=== PATIENT | female | born 1995 | race Caucasian/White ===

== ENCOUNTER 2022-01-28 04:48 | Inpatient (IN) | payer OTHER ==
[~2022-01-28] VITALS: Ht 167.6 cm; Wt 92.7 kg
[~2022-01-28 04:48] MED LIST: METO10 PO; PROM12.5S PR
[2022-01-28 09:49] LABS: BASOPHILS ABSOLUTE AUTO 0.04 K/mm3 (0.00-0.23); BASOPHILS PERCENT AUTO 0 % (0-2); EOSINOPHILS ABSOLUTE AUTO 0.01 K/mm3 (0.00-0.68); EOSINOPHILS PERCENT AUTO 0 % (0-6); Hematocrit 38.6 % (33.0-51.0); Hemoglobin 13.5 g/dL (11.5-16.0); IMMATURE GRAN ABSOLUTE AUTO 0.04 K/mm3 (0.00-0.10); IMMATURE GRAN PERCENT AUTO 0 % (0-1); LYMPHOCYTES ABSOLUTE AUTO 1.28 K/mm3 (0.84-5.20); LYMPHOCYTES PERCENT AUTO 13 % (21-46); MONOCYTES ABSOLUTE AUTO 0.64 K/mm3 (0.16-1.47); MONOCYTES PERCENT AUTO 7 % (4-13); Mean Corpuscular HGB 29.2 pg (26.0-34.0); Mean Corpuscular Volume 84 fL (80-100); Mean Platelet Volume 10.9 fL (9.1-12.4); NEUTROPHILS ABSOLUTE AUTO 7.64 K/mm3 (1.96-9.15); NEUTROPHILS PERCENT AUTO 79 % (41-73); Platelet Count 220 K/mm3 (150-400); RDW Coefficient Variation 12.9 % (11.7-14.2); RDW Standard Deviation 39.2 fL (35.1-46.3); Red Blood Cell Count 4.62 M/mm3 (3.80-5.20); White Blood Cell Count 9.65 K/mm3 (4.00-11.30)
[2022-01-28 10:27] LABS: Albumin, Blood 3.7 g/dL (3.4-5.0); Albumin/Globulin Ratio 1.1 (0.8-1.8); Bilirubin, Total 2.1 mg/dL (0.1-1.0); Bun/Creatinine Ratio 25.3 (12.0-20.0); Calcium, Blood 8.7 mg/dL (8.5-10.1); Creatinine, Blood 0.55 mg/dL (0.40-1.00); Globulin, Blood 3.5 g/dL (2.2-4.0); Potassium, Blood 2.9 mmol/L (3.5-5.5); Total Protein, Blood 7.2 g/dL (6.4-8.2)
[2022-01-28 14:17] LABS: Bun/Creatinine Ratio 19.2 (12.0-20.0); Calcium, Blood 8.3 mg/dL (8.5-10.1); Creatinine, Blood 0.52 mg/dL (0.40-1.00); Magnesium, Blood 1.9 mg/dL (1.6-2.4); Potassium, Blood 3.6 mmol/L (3.5-5.5)
[2022-01-28] MEDS ORDERED: B-6200 MG PO (18:37)
[2022-01-28 22:21] LABS: Source, Urine Clean Catch
[2022-01-28 22:22] LABS: Bilirubin, Urine Neg (Neg); Blood, Urine Neg (Neg); Glucose Qualitative, Urine Neg (Neg); Ketones, Urine 4+ (Neg); Leukocyte Esterase, Urine Neg (Neg); Nitrite, Urine Neg (Neg); Protein, Urine Neg (Neg); Specific Gravity, Urine 1.015 (1.003-1.022); Urobilinogen, Urine 3+ (Normal)
[2022-01-28 23:08] LABS: Appearance, Urine Clear (Clear); Color, Urine Yellow (P-Yellow)
--- NOTE | 2022-01-29 04:30 | NUR ---
SUMMARY: PT A/OX4, INDEPENDENT IN ROOM AND CALLS APPROPRIATELY TO SPECIFY NEEDS. SHE REMAINS VERY NAUSEOUS W/EMESIS AND DRY HEAVING OBSERVED. BENEDRYL IV PRN RX'D IN ADDITION TO EXISTING REGLAN AND ZOFRAN TO HELP RELIEVE NAUSEA. THESE PRN MEDS WERE RECIEVED REGULARLY T/O NOCTE FOR "SOME IMPROVEMENT". SHE CONT'S TO HAVE DIFFICULTY KEEPING ANYTHING DOWN BUT TOLERATED SIPS OF WATER. LR INFUSED X1L THEN WAS SL'D PER EMAR. UA OBTAINED AND SENT, NO UTI EVIDENT. VSS/AFEBRILE AND NO ACUTE CHANGES. WCTM AND REPORT TO DAY RN.
[2022-01-29 05:22] LABS: Magnesium, Blood 1.9 mg/dL (1.6-2.4)
[2022-01-29 05:23] LABS: Bun/Creatinine Ratio 13.9 (12.0-20.0); Calcium, Blood 8.3 mg/dL (8.5-10.1); Creatinine, Blood 0.51 mg/dL (0.40-1.00); Potassium, Blood 3.1 mmol/L (3.5-5.5)
--- NOTE | 2022-01-29 06:35 | NUR ---
ALERTED TO POTASSIUM NOW 3.1, WAS 3.6. NEW ORDERS RECIEVED FOR KCL 40 MEQ IV X1.
--- NOTE | 2022-01-30 04:40 | NUR ---
SUMMARY: PT A/OX4, INDEPENDENT IN ROOM AND CALLS APPROPRIATLEY TO SPECIFY NEEDS. SHE CONT'S TO LACK AN APPETITE AND NAUSEA PERSISTS BUT PT REPORTS SOME IMPROVEMENT. PRN REGLAN, ZOFRAN AND BENEDRYL RECIEVED PER EMAR AND LR INFUSES AT 100 ML/HR. NO ACUTE CHANGES, VSS/AFEBRILE. WCTM AND REPORT TO DAY RN.
[2022-01-30 05:34] LABS: Bun/Creatinine Ratio 15.2 (12.0-20.0); Calcium, Blood 8.5 mg/dL (8.5-10.1); Creatinine, Blood 0.46 mg/dL (0.40-1.00); Potassium, Blood 3.3 mmol/L (3.5-5.5)
--- NOTE | 2022-01-31 04:39 | NUR ---
SUMMARY: PT A/OX4, CALLS APPROPRIATELY TO SPECIFY NEEDS AND IS PLEASANT AND COOPERATIVE W/CARE. NAUSEA APPEARS TO BE MUCH IMPROVED THIS SHIFT. SHE RECIEVED SCHEDULED PEPCID AND SOLUMEDROL AT HS BUT HASN'T REQUESTED ANY PRN ANTIEMETICS THIS SHIFT. PT TOLERATING SMALL AMTS OF PO AT A TIME. SHE DENIED NEEDS AND STATED FEELING "JUST REALLY TIRED". PT OBSERVED SLEEPING MAJORITY OF NOCTE W/O ACUTE CHANGES. VSS/AFEBRILE. WCTM AND REPORT TO DAY RN.
[2022-01-31 06:39] LABS: Bun/Creatinine Ratio 18.7 (12.0-20.0); Calcium, Blood 9.2 mg/dL (8.5-10.1); Creatinine, Blood 0.43 mg/dL (0.40-1.00); Potassium, Blood 3.8 mmol/L (3.5-5.5)
--- NOTE | 2022-01-31 18:03 | NUR ---
PATIENT A/OX4, UP INDEPENDENTLY IN ROOM. CONTINUES TO HAVE N/V TODAY AFTER EATING. PATIENT ALSO HAD A FEW EPISODES OFF DIARRHEA. VSS, ON RA. TRYING A MORE BLAND DIET THIS EVENING FOR DINNER. 20G IV TO R HAND WNL. ZOFRAN CHANGED FROM PRN TO SCHEDULED TODAY. PATIENT IS VERY PLEASANT AND COOPERATIVE WITH CARE AND CALLS APPROPRIATELY FOR ASSISTANCE.
--- NOTE | 2022-02-01 05:03 | NUR ---
PT IS A/O IND IN ROOM. MEDICATED FOR NAUSEA THIS SHIFT, PT IS 6 WKS . VOMIT X1 THIS SHIFT. AT BEDSIDE.
--- NOTE | 2022-02-01 17:24 | NUR ---
SHIFT SUMMARY PT A&O X 4. HAS BEEN NAUSEATED OFF & ON THROUGHOUT SHIFT. VOMITED 2 TIMES. HAS BEEN ABLE TO KEEP DOWN WATERMELON. VSS. PT DENIED NEED FOR ZOFRAN THIS AM. SHE REQUESTED ZOFRAN DOSE THIS AFTERNOON, GIVEN. SHE WAS MEDICATED ONCE WITH REGLAN. PLAN IS POSSIBLE HOME TOMORROW.
--- NOTE | 2022-02-02 05:30 | NUR ---
PT IS A/O, 6 WKS , IND IN ROOM, ONE TIME OF VOMITTING THIS SHIFT. SCHEDULED ZOFRAN GIVEN WITH REGLAN IN BETWEEN. PT IS SORE FROM VOMITTING BUT REFUSED TYLENOL THIS SHIFT.
[2022-02-02] MEDS ORDERED: ONDA4ODT MM (17:17)
--- NOTE | 2022-02-02 18:41 | NUR ---
DC HOME PT DC'D HOME WITH ALL PERSONAL BELONGINGS WITH SO. PIV DC'D WITH CATH TIP INTACT. SWELLING NOTED AT PIV SITE. DC INSTRUCTIONS GIVEN TO PT. ALL CONCERNS & QUESTIONS ADDRESSED. DC MEDS FAXED TO [facility] IN [place] PER PT REQUEST.
== END 2022-02-02 18:39 | disposition home or self-care (01) | DRG 833 ==
LOC: ER 04:48 → MEDS 04:49
PROVIDERS: Family Medicine; Student in an Organized Health Care Education/Training Program; ADMIT Hospitalist
DX: O21.0 Mild hyperemesis gravidarum (principal); O99.281 Endocrine, nutritional and metabolic diseases complicating pregnancy, first trimester; E87.6 Hypokalemia; Z3A.01 Less than 8 weeks gestation of pregnancy; Z90.49 Acquired absence of other specified parts of digestive tract; Z79.899 Other long term (current) drug therapy
CPT/HCPCS: 36415; 80048; 80053; 81003; 83735; 84100; 84702; 85025; 96361; 96365; 96366; 96367; 96375; 96376; 99284-25; A9270; G0378; J1200; J2405; J2550; J2765; J2920; J3411; J3415; J3480; J7030; J7042; J7120

== ENCOUNTER 2022-02-23 10:56 | Inpatient (IN) | payer OTHER ==
[~2022-02-23] VITALS: Ht 167.6 cm; Wt 81.2 kg
[~2022-02-23 10:56] MED LIST changes: +B-6200 MG PO; +ONDA4ODT MM
[2022-02-23 11:38] LABS: BASOPHILS ABSOLUTE AUTO 0.06 K/mm3 (0.00-0.23); BASOPHILS PERCENT AUTO 1 % (0-2); EOSINOPHILS ABSOLUTE AUTO 0.08 K/mm3 (0.00-0.68); EOSINOPHILS PERCENT AUTO 1 % (0-6); Hematocrit 44.1 % (33.0-51.0); Hemoglobin 16.4 g/dL (11.5-16.0); IMMATURE GRAN ABSOLUTE AUTO 0.02 K/mm3 (0.00-0.10); IMMATURE GRAN PERCENT AUTO 0 % (0-1); LYMPHOCYTES ABSOLUTE AUTO 1.31 K/mm3 (0.84-5.20); LYMPHOCYTES PERCENT AUTO 15 % (21-46); MONOCYTES ABSOLUTE AUTO 0.66 K/mm3 (0.16-1.47); MONOCYTES PERCENT AUTO 8 % (4-13); Mean Corpuscular HGB 29.4 pg (26.0-34.0); Mean Corpuscular HGB Conc 37.2 g/dL (31.5-36.5); Mean Corpuscular Volume 79 fL (80-100); Mean Platelet Volume 11.1 fL (9.1-12.4); NEUTROPHILS ABSOLUTE AUTO 6.36 K/mm3 (1.96-9.15); NEUTROPHILS PERCENT AUTO 75 % (41-73); Platelet Count 285 K/mm3 (150-400); RDW Coefficient Variation 13.2 % (11.7-14.2); RDW Standard Deviation 36.5 fL (35.1-46.3); Red Blood Cell Count 5.58 M/mm3 (3.80-5.20); White Blood Cell Count 8.49 K/mm3 (4.00-11.30)
[2022-02-23 11:38] LABS: Source, Urine Clean Catch
[2022-02-23 11:45] LABS: Appearance, Urine Hazy (Clear); Blood, Urine 1+ (Neg); Color, Urine Amber (P-Yellow); Glucose Qualitative, Urine Neg (Neg); Ketones, Urine 4+ (Neg); Leukocyte Esterase, Urine 1+ (Neg); Nitrite, Urine Neg (Neg); Protein, Urine 2+ (Neg); Urobilinogen, Urine 3+ (Normal)
[2022-02-23 12:02] LABS: Albumin, Blood 3.8 g/dL (3.4-5.0); Albumin/Globulin Ratio 0.9 (0.8-1.8); Bilirubin, Total 2.7 mg/dL (0.1-1.0); Bun/Creatinine Ratio 18.1 (12.0-20.0); Calcium, Blood 9.9 mg/dL (8.5-10.1); Creatinine, Blood 0.33 mg/dL (0.40-1.00); Globulin, Blood 4.3 g/dL (2.2-4.0); Potassium, Blood 2.9 mmol/L (3.5-5.5); Total Protein, Blood 8.1 g/dL (6.4-8.2)
[2022-02-23 12:10] LABS: Bilirubin, Urine 1+ (Neg)
[2022-02-23 12:11] LABS: Hyaline Casts 0-2 /lpf (0-2)
[2022-02-23 12:12] LABS: Bacteria Many /hpf; Red Blood Cells, Urine 0-2 /hpf (0-2); Squamous Epithelial Cells Many /hpf (Few)
--- NOTE | 2022-02-23 22:06 | NUR ---
PT ADMITTED FROM ER TO ROOM 301 AT 1950. PT ABLE TO AMBULATE, SBA. PT DENIED ANY N/V OR PAIN. REPORTED RECEIVED FROM CONTROL ENGINEERGE. WILL CONTINUE TO MONITOR.
--- NOTE | 2022-02-24 04:00 | NUR ---
A&OX4. V/S WNL. NO N/V. PT C/O ACID REFLUX. PT STARTED ON IV PROTONIX. NPO. IV TO L) AC; NS INFUSING @ 100 ML/HR FOR A TOTAL OF 1.5L. VOIDED W/O DIFFICULTY. NO BM. TELE: SR @ HR OF 69 BPM. INDEPENDANT. WILL CONTINUE TO MONITOR.
[2022-02-24 05:40] LABS: BASOPHILS ABSOLUTE AUTO 0.06 K/mm3 (0.00-0.23); BASOPHILS PERCENT AUTO 1 % (0-2); EOSINOPHILS ABSOLUTE AUTO 0.11 K/mm3 (0.00-0.68); EOSINOPHILS PERCENT AUTO 2 % (0-6); Hematocrit 36.4 % (33.0-51.0); Hemoglobin 12.9 g/dL (11.5-16.0); IMMATURE GRAN ABSOLUTE AUTO 0.02 K/mm3 (0.00-0.10); IMMATURE GRAN PERCENT AUTO 0 % (0-1); LYMPHOCYTES ABSOLUTE AUTO 1.68 K/mm3 (0.84-5.20); LYMPHOCYTES PERCENT AUTO 27 % (21-46); MONOCYTES ABSOLUTE AUTO 0.51 K/mm3 (0.16-1.47); MONOCYTES PERCENT AUTO 8 % (4-13); Mean Corpuscular HGB 29.2 pg (26.0-34.0); Mean Corpuscular HGB Conc 35.4 g/dL (31.5-36.5); Mean Corpuscular Volume 82 fL (80-100); Mean Platelet Volume 11.2 fL (9.1-12.4); NEUTROPHILS ABSOLUTE AUTO 3.96 K/mm3 (1.96-9.15); NEUTROPHILS PERCENT AUTO 63 % (41-73); Platelet Count 206 K/mm3 (150-400); RDW Coefficient Variation 13.8 % (11.7-14.2); RDW Standard Deviation 40.4 fL (35.1-46.3); Red Blood Cell Count 4.42 M/mm3 (3.80-5.20); White Blood Cell Count 6.34 K/mm3 (4.00-11.30)
[2022-02-24 06:09] LABS: Albumin, Blood 2.8 g/dL (3.4-5.0); Albumin/Globulin Ratio 0.8 (0.8-1.8); Bilirubin, Total 1.9 mg/dL (0.1-1.0); Bun/Creatinine Ratio 14.1 (12.0-20.0); Calcium, Blood 8.4 mg/dL (8.5-10.1); Creatinine, Blood 0.36 mg/dL (0.40-1.00); Globulin, Blood 3.6 g/dL (2.2-4.0); Potassium, Blood 2.6 mmol/L (3.5-5.5); Total Protein, Blood 6.4 g/dL (6.4-8.2)
--- NOTE | 2022-02-24 09:39 | NUR ---
Pt has had no nausea this am, states she's feeling better, no appetite, got herself up to the bathroom, gait noted to be steady, iv infiltrated and is tender, this was removed intact, Dr. Hernandez in to see her, will try some clears and oral k+ rather than the iv so will leave iv out for now, if she tolerates, and K+ is wnl this afternoon may go home later. is tolerating the liquids and crackers.
--- NOTE | 2022-02-24 18:16 | NUR ---
pt had a soft dinner tonight, didn't tolerate very well, sitting up on the side of the bed, states she's not going to vomit just a little discomfort. no acute changes this shift. call light in reach.
--- NOTE | 2022-02-25 04:30 | NUR ---
SHIFT SUMMARY: A/OX4, ADLIB IN ROOM AND INDEPENDENT REPOSITIONING IN BED. NO REPORTS OF NAUSEA THROUGHOUT THE NIGHT. PATIENT HAVING SLIGHT INCREASED APPETITE TOLERATING SOFT/CLEARS WELL AT THIS TIME. NO REPORTS OF PAIN OR ANY DISCOMFORT THROUGHOUT THE NIGHT. BED IN LOW POSITION, CALL HURD AND BELONGINGS IN REACH. PT CONTINUES TO CALL APPROPRIATELY.
--- NOTE | 2022-02-25 08:00 | NUR ---
Pt laying in bed, she looks brighter than yesterday, she reports she had no nausea all night, and feels like she can eat, states she feels back to normal, encouraged her to take it slow with breakfast, call light in reach.
[2022-02-25] MEDS ORDERED: Calcium Carbon500 MG PO (16:25)
[2022-02-25] MEDS ORDERED: K-Dur20 MEQ PO (16:25)
--- NOTE | 2022-02-25 16:55 | NUR ---
K+ is wnl, will be discharging to home, iv removed intact, went over discharge intructions with her, she verbalized understanding, new medication was faxed to [facility] pharmacy, waiting on s.o. call light in reach.
--- NOTE | 2022-02-25 17:00 | NUR ---
pt left via wheelchair with results engineer in attendence, has all her belongings.
== END 2022-02-25 17:19 | disposition home or self-care (01) | DRG 833 ==
LOC: ER 10:56 → MEDS 17:10
PROVIDERS: Physician Assistant; ADMIT Internal Medicine
DX: O21.1 Hyperemesis gravidarum with metabolic disturbance (principal); O99.611 Diseases of the digestive system complicating pregnancy, first trimester; K21.9 Gastro-esophageal reflux disease without esophagitis; Z3A.10 10 weeks gestation of pregnancy; Z90.49 Acquired absence of other specified parts of digestive tract; E86.0 Dehydration
CPT/HCPCS: 36415; 76705; 80053; 81001; 84132; 84702; 85025; 87086; 96361; 96365; 96366; 96372; 96372-59; 96375; 96376; 99285-25; A9270; C9113; G0378; J1650; J2405; J2550; J2765; J3480; J7030; J7040; J7050; J7120

== ENCOUNTER 2022-03-02 01:31 | Emergency (ER) | payer OTHER ==
[~2022-03-02] VITALS: Ht 165.1 cm; Wt 78.9 kg
[~2022-03-02 01:31] MED LIST changes: +Calcium Carbon500 MG PO; +K-Dur20 MEQ PO
[2022-03-02 02:26] LABS: BASOPHILS ABSOLUTE AUTO 0.05 K/mm3 (0.00-0.23); BASOPHILS PERCENT AUTO 1 % (0-2); EOSINOPHILS ABSOLUTE AUTO 0.08 K/mm3 (0.00-0.68); EOSINOPHILS PERCENT AUTO 1 % (0-6); Hematocrit 43.3 % (33.0-51.0); Hemoglobin 15.8 g/dL (11.5-16.0); IMMATURE GRAN ABSOLUTE AUTO 0.02 K/mm3 (0.00-0.10); IMMATURE GRAN PERCENT AUTO 0 % (0-1); LYMPHOCYTES ABSOLUTE AUTO 1.54 K/mm3 (0.84-5.20); LYMPHOCYTES PERCENT AUTO 24 % (21-46); MONOCYTES ABSOLUTE AUTO 0.42 K/mm3 (0.16-1.47); MONOCYTES PERCENT AUTO 7 % (4-13); Mean Corpuscular HGB 29.8 pg (26.0-34.0); Mean Corpuscular HGB Conc 36.5 g/dL (31.5-36.5); Mean Corpuscular Volume 82 fL (80-100); Mean Platelet Volume 11.1 fL (9.1-12.4); NEUTROPHILS ABSOLUTE AUTO 4.27 K/mm3 (1.96-9.15); NEUTROPHILS PERCENT AUTO 67 % (41-73); Platelet Count 270 K/mm3 (150-400); RDW Coefficient Variation 14.3 % (11.7-14.2); RDW Standard Deviation 41.8 fL (35.1-46.3); Red Blood Cell Count 5.31 M/mm3 (3.80-5.20); White Blood Cell Count 6.38 K/mm3 (4.00-11.30)
[2022-03-02 02:44] LABS: Albumin, Blood 3.5 g/dL (3.4-5.0); Albumin/Globulin Ratio 0.9 (0.8-1.8); Bilirubin, Total 1.8 mg/dL (0.1-1.0); Bun/Creatinine Ratio 13.5 (12.0-20.0); Calcium, Blood 9.4 mg/dL (8.5-10.1); Creatinine, Blood 0.37 mg/dL (0.40-1.00); Globulin, Blood 3.7 g/dL (2.2-4.0); Potassium, Blood 3.5 mmol/L (3.5-5.5); Total Protein, Blood 7.2 g/dL (6.4-8.2)
== END 2022-03-02 06:25 | disposition home or self-care (01) ==
LOC: ER 01:31
PROVIDERS: Student in an Organized Health Care Education/Training Program
DX: O21.0 Mild hyperemesis gravidarum (principal); Z3A.12 12 weeks gestation of pregnancy; Z79.899 Other long term (current) drug therapy
CPT/HCPCS: 80053; 85025; J2405; J7120

== ENCOUNTER 2022-03-06 13:42 | Inpatient (IN) | payer OTHER ==
[~2022-03-06] VITALS: Ht 165.1 cm; Wt 78.4 kg
[2022-03-06 14:55] LABS: Source, Urine Clean Catch
[2022-03-06 15:01] LABS: Appearance, Urine Hazy (Clear); Bilirubin, Urine Neg (Neg); Blood, Urine 1+ (Neg); Color, Urine Amber (P-Yellow); Glucose Qualitative, Urine Neg (Neg); Ketones, Urine 4+ (Neg); Leukocyte Esterase, Urine 2+ (Neg); Nitrite, Urine Neg (Neg); Protein, Urine 2+ (Neg); Specific Gravity, Urine 1.025 (1.003-1.022); Urobilinogen, Urine 2+ (Normal)
[2022-03-06 15:13] LABS: Bacteria Mod /hpf; Squamous Epithelial Cells Few /hpf (Few)
[2022-03-06 15:37] LABS: BASOPHILS ABSOLUTE AUTO 0.03 K/mm3 (0.00-0.23); BASOPHILS PERCENT AUTO 0 % (0-2); EOSINOPHILS ABSOLUTE AUTO 0.02 K/mm3 (0.00-0.68); EOSINOPHILS PERCENT AUTO 0 % (0-6); Hematocrit 45.2 % (33.0-51.0); Hemoglobin 16.8 g/dL (11.5-16.0); IMMATURE GRAN ABSOLUTE AUTO 0.03 K/mm3 (0.00-0.10); IMMATURE GRAN PERCENT AUTO 0 % (0-1); LYMPHOCYTES ABSOLUTE AUTO 1.63 K/mm3 (0.84-5.20); LYMPHOCYTES PERCENT AUTO 18 % (21-46); MONOCYTES ABSOLUTE AUTO 0.69 K/mm3 (0.16-1.47); MONOCYTES PERCENT AUTO 8 % (4-13); Mean Corpuscular HGB 29.3 pg (26.0-34.0); Mean Corpuscular HGB Conc 37.2 g/dL (31.5-36.5); Mean Corpuscular Volume 79 fL (80-100); Mean Platelet Volume 10.7 fL (9.1-12.4); NEUTROPHILS ABSOLUTE AUTO 6.73 K/mm3 (1.96-9.15); NEUTROPHILS PERCENT AUTO 74 % (41-73); Platelet Count 352 K/mm3 (150-400); RDW Coefficient Variation 14.4 % (11.7-14.2); Red Blood Cell Count 5.73 M/mm3 (3.80-5.20); White Blood Cell Count 9.13 K/mm3 (4.00-11.30)
[2022-03-06 15:55] LABS: Albumin, Blood 3.8 g/dL (3.4-5.0); Bilirubin, Total 2.5 mg/dL (0.1-1.0); Bun/Creatinine Ratio 12.3 (12.0-20.0); Creatinine, Blood 0.41 mg/dL (0.40-1.00); Potassium, Blood 2.7 mmol/L (3.5-5.5); Total Protein, Blood 7.8 g/dL (6.4-8.2)
--- NOTE | 2022-03-07 05:55 | NUR ---
PT NEW ADMIT THIS SHIFT FOR HYPEREMESIS. PT VSS. PT HAD 1 EPISODE OF WRETCHING W/300ML EMESIS UPON ARRIVAL TO FLOOR. PT MEDICATED W/PHENERGAN PER EMAR, APPEARED TO SLEEP FOR REMAINDER OF SHIFT. PT REP OCC MILD ABD CRAMPING, DENIED VAGINAL BLEEDING. IVF AND K+ INFUSING PER ORDERS. PT UP IN ROOM, DOES REPORT OCC MILD DIZZINESS WHEN FIRST UP, EDCUATED TO CALL FOR ASSISTANCE IF SHE FEELS DIZZY.
[2022-03-07 06:34] LABS: Bun/Creatinine Ratio 10.4 (12.0-20.0); Calcium, Blood 8.8 mg/dL (8.5-10.1); Creatinine, Blood 0.39 mg/dL (0.40-1.00)
--- NOTE | 2022-03-07 17:54 | NUR ---
SUMMARY: PT IS A/O, VSS. NO ACUTE CHANGE TODAY. PT HAS BEEN ABLE TO TOLERATE PO MEDS AND HAS ATE SOME APPLESAUCE AND CRACKERS WITHOUT NAUSEA. PT VOIDING WELL AND INDEPENDENT IN ROOM. NO EMESIS THIS SHIFT. FLUIDS CONTINUE TO INFUSE. PLAN IS FOR CONTINUED MONITORING OVER NIGHT. WILL REPORT TO NOC RN
[2022-03-07 20:06] LABS: Magnesium, Blood 1.7 mg/dL (1.6-2.4); Potassium, Blood 2.6 mmol/L (3.5-5.5)
--- NOTE | 2022-03-08 05:16 | NUR ---
UNDER CUTTER SUMMARY PT HAS HAD A GOOD NIGHT. NO NAUSEA OR VOMITING NOTED TONIGHT. PT WAS ABLE TO EAT A HALF SANDWICH BEFORE BED AND TOLERATED IT WELL WITH NO ISSUES. CONTINUING IV FLUIDS ORDERED. PT HAS SLEPT WELL THROUGH THE NIGHT. VSS, YEN.
[2022-03-08 05:21] LABS: Magnesium, Blood 1.6 mg/dL (1.6-2.4); Potassium, Blood 2.9 mmol/L (3.5-5.5)
--- NOTE | 2022-03-08 07:00 | NUR ---
ASSUMED CARE OF PATIENT. PATIENT RESTING IN BED, DENIES N/V AT THIS TIME. BEDSIDE REPORT DONE WITH MEGAN BARBOSA. PATIENT HAS NO CONCERNS OR QUESTIONS VERBALIZED AT THIS TIME. CALL LIGHT IN REACH. IV PUMP CLEARED AT THIS TIME, 3769 ML. THIS RN DOCUMENTED 1800 FOR NOC SHIFT (150ML FOR 12 HOURS) AND 1969 FOR YESTERDAY DAY SHIFT (THE REMAINDER) IN ORDER TO SHOW ACCURATE I&O'S.
--- NOTE | 2022-03-08 10:53 | NUR ---
Pt. is sitting up in bed, and Pt. welcomes my visit. Pt. is pleasant. facilitate a short life review and Pt. verbalizes that she is , and both she and the baby girl are healthy. Pt. displays evidence of agreement and trust. Prayed with Pt. Pt. verbalizes gratitude for the spiritual care visit.
--- NOTE | 2022-03-08 19:36 | NUR ---
SHIFT SUMMARY NO ACUTE CHANGES THIS SHIFT. PATIENT DENIED N/V THROUGHOUT SHIFT UNTIL ABOUT 1730, REPORTED MILD NAUSEA WITH PM MEAL, MEDICATED X1 PER EMAR. OTHERWISE PATIENT TOLERATED REGULAR DIET T/O SHIFT. UP TO BR INDEPENDENTLY THROUGHOUT SHIFT, HAD SHOWER. DENIES ANY PAIN. CALLS APPROPRIATELY. REPORT GIVEN TO MEGAN LYNN.
--- NOTE | 2022-03-09 04:32 | NUR ---
SHIFT SUMMARY A/O X4- IND IN THE ROOM. PT HAS HAD ONE BOUT OF EMESIS THIS SHIFT, TREATED PER EMAR. VITAL SIGNS STABLE, NO ACUTE CHANGES OVER NIGHT. WILL CONTINUE TO MONITOR AND REPORT TO ONCOMING RN.
[2022-03-09 06:04] LABS: Bun/Creatinine Ratio 10.2 (12.0-20.0); Calcium, Blood 7.8 mg/dL (8.5-10.1); Creatinine, Blood 0.29 mg/dL (0.40-1.00); Potassium, Blood 3.6 mmol/L (3.5-5.5)
--- NOTE | 2022-03-09 11:15 | NUR ---
[facility] RN AT BEDSIDE TO DOPPLER HEART TONES. RN STEPHON UNABLE TO FIND HEART TONES, STATED SHE WILL TELL DR GARNETT WHO WAS DOWNSTAIRS IN [facility] AT THE TIME. REASSURED PATIENT THAT THIS IS NOT UNCOMMON AT THIS STAGE IN .
--- NOTE | 2022-03-09 11:27 | NUR ---
DR GARNETT AT BEDSIDE, PERFORMED ULTRASOUND TO VIEW FETUS AND HEART RATE SUCCESSFULLY. UPDATED PATIENT ON POSSIBLE DISCHARGE TODAY.
[2022-03-09] MEDS ORDERED: PRED20 PO (18:16)
--- NOTE | 2022-03-09 18:41 | NUR ---
DISCHARGE VSS ON RA. PATIENT TOLERATING REGULAR DIET, DENIES N/V AT THIS TIME AND REPORTS FEELING COMFORTABLE GOING HOME ON PO NAUSEA MEDICATIONS. IND IN ROOM. VOIDING WELL. DISCUSSED DISCHARGE INSTRUCTIONS,NO CONCERNS VERBALIZED. ESCORTED OUT VIA W/C.
== END 2022-03-09 18:40 | disposition home or self-care (01) | DRG 833 ==
LOC: ER 13:42 → MEDS 03-07 00:18 → SURS 03-07 00:18
PROVIDERS: Obstetrics & Gynecology; Physician Assistant; ADMIT Advanced Practice Midwife
DX: O21.1 Hyperemesis gravidarum with metabolic disturbance (principal); Z3A.12 12 weeks gestation of pregnancy; Z90.49 Acquired absence of other specified parts of digestive tract; Z79.899 Other long term (current) drug therapy
CPT/HCPCS: 36415; 80048; 80053; 81001; 83690; 83735; 84132; 84702; 85025; 87086; 96365; 96366; 96375; 99284-25; A9270; J1720; J2405; J2550; J3480; J7030; J7120

== ENCOUNTER → 2022-03-12 | Outpatient (CLI) | payer OTHER ==
[~2022-03-12] MED LIST changes: +PRED20 PO
== END | disposition home or self-care (01) ==
LOC: LAB 13:49 → LAB SHORT 13:49
PROVIDERS: Advanced Practice Midwife
DX: Z01.419 Encounter for gynecological examination (general) (routine) without abnormal findings (principal)
CPT/HCPCS: G0123

== ENCOUNTER 2022-03-21 12:18 | Emergency (ER) | payer OTHER ==
[~2022-03-21] VITALS: Ht 165.1 cm; Wt 83.5 kg
[2022-03-21 13:26] LABS: BASOPHILS ABSOLUTE AUTO 0.04 K/mm3 (0.00-0.23); BASOPHILS PERCENT AUTO 1 % (0-2); EOSINOPHILS ABSOLUTE AUTO 0.05 K/mm3 (0.00-0.68); EOSINOPHILS PERCENT AUTO 1 % (0-6); Hematocrit 41.7 % (33.0-51.0); Hemoglobin 14.3 g/dL (11.5-16.0); IMMATURE GRAN ABSOLUTE AUTO 0.03 K/mm3 (0.00-0.10); IMMATURE GRAN PERCENT AUTO 0 % (0-1); LYMPHOCYTES PERCENT AUTO 18 % (21-46); MONOCYTES ABSOLUTE AUTO 0.55 K/mm3 (0.16-1.47); MONOCYTES PERCENT AUTO 7 % (4-13); Mean Corpuscular HGB 29.8 pg (26.0-34.0); Mean Corpuscular HGB Conc 34.3 g/dL (31.5-36.5); Mean Corpuscular Volume 87 fL (80-100); Mean Platelet Volume 10.6 fL (9.1-12.4); NEUTROPHILS ABSOLUTE AUTO 5.95 K/mm3 (1.96-9.15); NEUTROPHILS PERCENT AUTO 74 % (41-73); Platelet Count 306 K/mm3 (150-400); RDW Coefficient Variation 15.6 % (11.7-14.2); RDW Standard Deviation 49.4 fL (35.1-46.3); White Blood Cell Count 8.02 K/mm3 (4.00-11.30)
[2022-03-21 13:32] LABS: Albumin, Blood 3.4 g/dL (3.4-5.0); Albumin/Globulin Ratio 0.8 (0.8-1.8); Bilirubin, Total 2.1 mg/dL (0.1-1.0); Bun/Creatinine Ratio 37.8 (12.0-20.0); Calcium, Blood 9.5 mg/dL (8.5-10.1); Creatinine, Blood 0.19 mg/dL (0.40-1.00); Globulin, Blood 4.3 g/dL (2.2-4.0); Potassium, Blood 3.6 mmol/L (3.5-5.5); Total Protein, Blood 7.7 g/dL (6.4-8.2)
[2022-03-21 14:08] LABS: Source, Urine Clean Catch
[2022-03-21 14:23] LABS: Appearance, Urine Hazy (Clear); Blood, Urine Neg (Neg); Color, Urine Amber (P-Yellow); Glucose Qualitative, Urine Neg (Neg); Ketones, Urine 4+ (Neg); Leukocyte Esterase, Urine 1+ (Neg); Nitrite, Urine Neg (Neg); Protein, Urine 2+ (Neg); Specific Gravity, Urine 1.025 (1.003-1.022); Urobilinogen, Urine 4+ (Normal)
[2022-03-21 14:40] LABS: Bilirubin, Urine 1+ (Neg)
[2022-03-21 14:41] LABS: Mucus Heavy (0-Heavy); Squamous Epithelial Cells Many /hpf (Few)
[2022-03-21 14:42] LABS: Bacteria Mod /hpf
[2022-03-21 14:43] LABS: Amorphous Light (0-Heavy); Transitional Epithelial Cells Rare /hpf (0-Rare)
[2022-03-22] MEDS ORDERED: TRANSDERM-SCOP1 EA12 TD (07:26)
[2022-03-24] MEDS ORDERED: FAMO20 (16:53)
[2022-03-24] MEDS ORDERED: OMEP20ER PO (16:53)
== END 2022-03-21 16:55 | disposition home or self-care (01) ==
LOC: ER 12:18
PROVIDERS: Physician Assistant
DX: O21.0 Mild hyperemesis gravidarum (principal); Z3A.14 14 weeks gestation of pregnancy; Z79.899 Other long term (current) drug therapy; Z79.52 Long term (current) use of systemic steroids
CPT/HCPCS: 36415; 80053; 81001; 85025; 87077; 87086; 87186; 96361; 96374; 99283-25; J1720; J7030

== ENCOUNTER 2022-03-26 00:07 | Day surgery (SDC) | payer OTHER ==
[~2022-03-26 00:07] MED LIST changes: +FAMO20; +OMEP20ER PO; +TRANSDERM-SCOP1 EA12 TD
[2022-03-30] MEDS ORDERED: REGLAN PO (14:29)
== END 2022-03-26 15:22 | disposition home or self-care (01) ==
LOC: ATC 00:07
DX: O21.0 Mild hyperemesis gravidarum (principal); Z3A.00 Weeks of gestation of pregnancy not specified; Z79.899 Other long term (current) drug therapy
CPT/HCPCS: 96361; 96374; J2405; J7120

== ENCOUNTER 2022-04-02 01:36 | Day surgery (SDC) | payer OTHER ==
[~2022-04-02 01:36] MED LIST changes: +REGLAN PO
== END 2022-04-02 15:33 | disposition home or self-care (01) ==
LOC: ATC 01:36
DX: O21.0 Mild hyperemesis gravidarum (principal); Z3A.00 Weeks of gestation of pregnancy not specified
CPT/HCPCS: 96361; 96374; J2405; J7120

== ENCOUNTER 2022-04-10 00:18 | Day surgery (SDC) | payer OTHER | END 2022-04-10 16:18 | disposition home or self-care (01) | LOC: ATC 00:18 | DX: O21.0 Mild hyperemesis gravidarum (principal); Z3A.00 Weeks of gestation of pregnancy not specified | CPT/HCPCS: 96361; 96374; J2405; J7120 ==

== ENCOUNTER 2022-04-17 01:51 | Day surgery (SDC) | payer OTHER | END 2022-04-17 15:32 | disposition home or self-care (01) | LOC: ATC 01:51 | DX: O21.0 Mild hyperemesis gravidarum (principal); Z3A.00 Weeks of gestation of pregnancy not specified | CPT/HCPCS: 96360; J2405; J7120 ==

== ENCOUNTER → 2022-08-20 | Outpatient (CLI) | payer OTHER | END | disposition home or self-care (01) | LOC: LAB SHORT 17:00 → LAB 17:00 | DX: Z34.03 Encounter for supervision of normal first pregnancy, third trimester (principal) | CPT/HCPCS: 87081; 87150 ==

== ENCOUNTER 2022-09-13 20:22 | Inpatient (IN) | payer OTHER ==
[~2022-09-13] VITALS: Ht 167.6 cm; Wt 103.6 kg
[2022-09-13 22:14] LABS: BASOPHILS ABSOLUTE AUTO 0.04 K/mm3 (0.00-0.23); BASOPHILS PERCENT AUTO 1 % (0-2); EOSINOPHILS PERCENT AUTO 1 % (0-6); Hematocrit 34.5 % (33.0-51.0); Hemoglobin 11.8 g/dL (11.5-16.0); IMMATURE GRAN ABSOLUTE AUTO 0.02 K/mm3 (0.00-0.10); IMMATURE GRAN PERCENT AUTO 0 % (0-1); LYMPHOCYTES ABSOLUTE AUTO 1.92 K/mm3 (0.84-5.20); LYMPHOCYTES PERCENT AUTO 26 % (21-46); MONOCYTES PERCENT AUTO 8 % (4-13); Mean Corpuscular HGB 28.5 pg (26.0-34.0); Mean Corpuscular HGB Conc 34.2 g/dL (31.5-36.5); Mean Corpuscular Volume 83 fL (80-100); Mean Platelet Volume 11.3 fL (9.1-12.4); NEUTROPHILS ABSOLUTE AUTO 4.84 K/mm3 (1.96-9.15); NEUTROPHILS PERCENT AUTO 64 % (41-73); Platelet Count 250 K/mm3 (150-400); RDW Coefficient Variation 13.8 % (11.7-14.2); RDW Standard Deviation 42.2 fL (35.1-46.3); Red Blood Cell Count 4.14 M/mm3 (3.80-5.20); White Blood Cell Count 7.52 K/mm3 (4.00-11.30)
[2022-09-13] MEDS ORDERED: PRENATAL TABLE1 EAC2 PO (22:50)
== END 2022-09-15 09:25 | disposition home or self-care (01) | DRG 833 ==
LOC: OBS 20:22 → BC 20:23 → OBS 20:27 → BC 20:29
PROVIDERS: ADMIT Advanced Practice Midwife
DX: O21.0 Mild hyperemesis gravidarum (principal); O99.820 Streptococcus B carrier state complicating pregnancy; Z3A.39 39 weeks gestation of pregnancy; Z90.49 Acquired absence of other specified parts of digestive tract; Z79.899 Other long term (current) drug therapy
CPT/HCPCS: 36415; 85025; 86850; 86900; 86901; A9270; J0290; J7120

== ENCOUNTER → 2024-01-17 | Outpatient (CLI) | payer OTHER ==
[~2024-01-17] MED LIST changes: +ISIBLOOM 28 DA1 EAC1 PO; +ONDA4ODT SL; +PRENATAL TABLE1 EAC2 PO; +Reglan10 MG PO
[2024-01-17 15:36] LABS: BASOPHILS ABSOLUTE AUTO 0.05 K/mm3 (0.00-0.23); BASOPHILS PERCENT AUTO 1 % (0-2); EOSINOPHILS ABSOLUTE AUTO 0.02 K/mm3 (0.00-0.68); EOSINOPHILS PERCENT AUTO 0 % (0-6); Hematocrit 43.2 % (33.0-51.0); Hemoglobin 15.5 g/dL (11.5-16.0); IMMATURE GRAN ABSOLUTE AUTO 0.03 K/mm3 (0.00-0.10); IMMATURE GRAN PERCENT AUTO 0 % (0-1); LYMPHOCYTES ABSOLUTE AUTO 1.55 K/mm3 (0.84-5.20); LYMPHOCYTES PERCENT AUTO 16 % (21-46); MONOCYTES ABSOLUTE AUTO 0.65 K/mm3 (0.16-1.47); MONOCYTES PERCENT AUTO 7 % (4-13); Mean Corpuscular HGB 28.8 pg (26.0-34.0); Mean Corpuscular HGB Conc 35.9 g/dL (31.5-36.5); Mean Corpuscular Volume 80 fL (80-100); NEUTROPHILS ABSOLUTE AUTO 7.69 K/mm3 (1.96-9.15); NEUTROPHILS PERCENT AUTO 77 % (41-73); Platelet Count 274 K/mm3 (150-400); RDW Coefficient Variation 13.2 % (11.7-14.2); RDW Standard Deviation 37.3 fL (35.1-46.3); Red Blood Cell Count 5.39 M/mm3 (3.80-5.20); White Blood Cell Count 9.99 K/mm3 (4.00-11.30)
[2024-01-17 15:47] LABS: Albumin, Blood 3.9 g/dL (3.4-5.0); Bilirubin, Total 1.7 mg/dL (0.1-1.0); Bun/Creatinine Ratio 10.9 (12.0-20.0); Calcium, Blood 9.6 mg/dL (8.5-10.1); Creatinine, Blood 0.64 mg/dL (0.40-1.00); Globulin, Blood 3.9 g/dL (2.2-4.0); Potassium, Blood 3.1 mmol/L (3.5-5.5); Total Protein, Blood 7.8 g/dL (6.4-8.2)
== END | disposition home or self-care (01) ==
LOC: LAB SHORT 15:24 → LAB 15:24
PROVIDERS: Internal Medicine
DX: K29.70 Gastritis, unspecified, without bleeding (principal)
CPT/HCPCS: 80053; 83690; 85025

== ENCOUNTER 2024-01-26 13:47 | Emergency (ER) | payer OTHER ==
[~2024-01-26] VITALS: Ht 165.1 cm; Wt 87.5 kg
[2024-01-26 14:43] LABS: BASOPHILS ABSOLUTE AUTO 0.06 K/mm3 (0.00-0.23); BASOPHILS PERCENT AUTO 1 % (0-2); EOSINOPHILS ABSOLUTE AUTO 0.02 K/mm3 (0.00-0.68); EOSINOPHILS PERCENT AUTO 0 % (0-6); Hematocrit 46.6 % (33.0-51.0); Hemoglobin 16.6 g/dL (11.5-16.0); IMMATURE GRAN ABSOLUTE AUTO 0.01 K/mm3 (0.00-0.10); IMMATURE GRAN PERCENT AUTO 0 % (0-1); LYMPHOCYTES ABSOLUTE AUTO 1.33 K/mm3 (0.84-5.20); LYMPHOCYTES PERCENT AUTO 20 % (21-46); MONOCYTES PERCENT AUTO 6 % (4-13); Mean Corpuscular HGB 28.5 pg (26.0-34.0); Mean Corpuscular HGB Conc 35.6 g/dL (31.5-36.5); Mean Corpuscular Volume 80 fL (80-100); Mean Platelet Volume 10.5 fL (9.1-12.4); NEUTROPHILS ABSOLUTE AUTO 4.93 K/mm3 (1.96-9.15); NEUTROPHILS PERCENT AUTO 73 % (41-73); Platelet Count 313 K/mm3 (150-400); RDW Coefficient Variation 14.1 % (11.7-14.2); RDW Standard Deviation 39.9 fL (35.1-46.3); Red Blood Cell Count 5.83 M/mm3 (3.80-5.20); White Blood Cell Count 6.75 K/mm3 (4.00-11.30)
[2024-01-26 14:59] LABS: Albumin, Blood 4.4 g/dL (3.4-5.0); Albumin/Globulin Ratio 1.2 (0.8-1.8); Bilirubin, Total 2.1 mg/dL (0.1-1.0); Bun/Creatinine Ratio 15.5 (12.0-20.0); Calcium, Blood 9.7 mg/dL (8.5-10.1); Creatinine, Blood 0.58 mg/dL (0.40-1.00); Globulin, Blood 3.8 g/dL (2.2-4.0); Magnesium, Blood 1.9 mg/dL (1.6-2.4); Potassium, Blood 3.3 mmol/L (3.5-5.5); Total Protein, Blood 8.2 g/dL (6.4-8.2)
[2024-01-26] MEDS ORDERED: Lactated Ringer's 1,000 ML IV ONE (15:45)
[2024-01-26] MEDS ORDERED: Potassium Chloride 20 MEQ TabCR PO ONE (15:50)
[2024-01-26] MEDS ORDERED: Ondansetron HCl 2 MG / ML 2ML Vial IV ONE ×2 (15:50→17:35)
[2024-01-26] MEDS ORDERED: OMEP20ER (16:06)
[2024-01-26] MEDS ORDERED: Potassium Chlo20 ME1 PO (16:06)
[2024-01-26] MEDS ORDERED: ONDA4ODT MM ×2 (16:55→17:57)
[2024-01-26 17:37] VITALS: BP 155/107
== END 2024-01-26 17:40 | disposition home or self-care (01) ==
LOC: ER 13:47
PROVIDERS: Physician Assistant
DX: R11.2 Nausea with vomiting, unspecified (principal); F12.90 Cannabis use, unspecified, uncomplicated; K21.9 Gastro-esophageal reflux disease without esophagitis; Z79.899 Other long term (current) drug therapy; Z79.818 Long term (current) use of other agents affecting estrogen receptors and estrogen levels
CPT/HCPCS: 74177; 80053; 83735; 84703; 85025; 96374-59; 96376; 99284-25; A9270; J2405; J7120; Q9967

== ENCOUNTER → 2024-02-03 | Outpatient (CLI) | payer OTHER ==
[~2024-02-03] MED LIST changes: +OMEP20ER; +Potassium Chlo20 ME1 PO
[2024-02-03 18:13] LABS: BASOPHILS ABSOLUTE AUTO 0.08 K/mm3 (0.00-0.23); BASOPHILS PERCENT AUTO 1 % (0-2); EOSINOPHILS ABSOLUTE AUTO 0.08 K/mm3 (0.00-0.68); EOSINOPHILS PERCENT AUTO 1 % (0-6); Hematocrit 48.3 % (33.0-51.0); Hemoglobin 16.8 g/dL (11.5-16.0); IMMATURE GRAN ABSOLUTE AUTO 0.02 K/mm3 (0.00-0.10); IMMATURE GRAN PERCENT AUTO 0 % (0-1); LYMPHOCYTES ABSOLUTE AUTO 2.35 K/mm3 (0.84-5.20); LYMPHOCYTES PERCENT AUTO 29 % (21-46); MONOCYTES ABSOLUTE AUTO 0.68 K/mm3 (0.16-1.47); MONOCYTES PERCENT AUTO 8 % (4-13); Mean Corpuscular HGB 28.3 pg (26.0-34.0); Mean Corpuscular HGB Conc 34.8 g/dL (31.5-36.5); Mean Corpuscular Volume 81 fL (80-100); NEUTROPHILS ABSOLUTE AUTO 5.05 K/mm3 (1.96-9.15); NEUTROPHILS PERCENT AUTO 61 % (41-73); Platelet Count 281 K/mm3 (150-400); RDW Coefficient Variation 14.7 % (11.7-14.2); RDW Standard Deviation 42.3 fL (35.1-46.3); Red Blood Cell Count 5.94 M/mm3 (3.80-5.20); White Blood Cell Count 8.26 K/mm3 (4.00-11.30)
[2024-02-03 18:34] LABS: Albumin, Blood 4.2 g/dL (3.4-5.0); Albumin/Globulin Ratio 1.1 (0.8-1.8); Bilirubin, Total 2.9 mg/dL (0.1-1.0); Bun/Creatinine Ratio 14.4 (12.0-20.0); Calcium, Blood 9.9 mg/dL (8.5-10.1); Creatinine, Blood 0.9 mg/dL (0.40-1.00); Potassium, Blood 2.9 mmol/L (3.5-5.5); Thyroid Stimulating Hormone 2.265 uIU/mL (0.360-4.800); Total Protein, Blood 8.2 g/dL (6.4-8.2)
== END ==
LOC: LAB SHORT 17:30 → LAB 17:30
PROVIDERS: Physician Assistant Medical
DX: R11.2 Nausea with vomiting, unspecified (principal)
CPT/HCPCS: 80053; 83690; 84443; 85025

== ENCOUNTER → 2024-08-17 | Outpatient (CLI) | payer OTHER ==
[2024-08-17 13:23] LABS: BASOPHILS ABSOLUTE AUTO 0.05 K/mm3 (0.00-0.23); BASOPHILS PERCENT AUTO 0 % (0-2); EOSINOPHILS ABSOLUTE AUTO 0.01 K/mm3 (0.00-0.68); EOSINOPHILS PERCENT AUTO 0 % (0-6); Hematocrit 45.6 % (33.0-51.0); Hemoglobin 15.4 g/dL (11.5-16.0); IMMATURE GRAN ABSOLUTE AUTO 0.05 K/mm3 (0.00-0.10); IMMATURE GRAN PERCENT AUTO 0 % (0-1); LYMPHOCYTES ABSOLUTE AUTO 2.01 K/mm3 (0.84-5.20); LYMPHOCYTES PERCENT AUTO 17 % (21-46); MONOCYTES ABSOLUTE AUTO 0.91 K/mm3 (0.16-1.47); MONOCYTES PERCENT AUTO 8 % (4-13); Mean Corpuscular HGB 27.8 pg (26.0-34.0); Mean Corpuscular HGB Conc 33.8 g/dL (31.5-36.5); Mean Corpuscular Volume 83 fL (80-100); Mean Platelet Volume 10.2 fL (9.1-12.4); NEUTROPHILS ABSOLUTE AUTO 9.01 K/mm3 (1.96-9.15); NEUTROPHILS PERCENT AUTO 75 % (41-73); Platelet Count 332 K/mm3 (150-400); RDW Standard Deviation 41.5 fL (35.1-46.3); Red Blood Cell Count 5.53 M/mm3 (3.80-5.20); White Blood Cell Count 12.04 K/mm3 (4.00-11.30)
[2024-08-17 13:35] LABS: Albumin, Blood 4.9 g/dL (3.4-5.0); Albumin/Globulin Ratio 1.2 (0.8-1.8); Bilirubin, Total 1.8 mg/dL (0.1-1.0); Bun/Creatinine Ratio 25.5 (12.0-20.0); Calcium, Blood 9.9 mg/dL (8.5-10.1); Creatinine, Blood 0.94 mg/dL (0.40-1.00); Potassium, Blood 3.4 mmol/L (3.5-5.5); Total Protein, Blood 8.9 g/dL (6.4-8.2)
== END ==
LOC: LAB SHORT 13:19 → LAB 13:19
PROVIDERS: Family Medicine
DX: K52.9 Noninfective gastroenteritis and colitis, unspecified (principal)
CPT/HCPCS: 80053; 85025

== ENCOUNTER → 2024-08-24 | Outpatient (CLI) | payer OTHER ==
[2024-08-24 17:40] LABS: BASOPHILS ABSOLUTE AUTO 0.07 K/mm3 (0.00-0.23); BASOPHILS PERCENT AUTO 1 % (0-2); EOSINOPHILS ABSOLUTE AUTO 0.07 K/mm3 (0.00-0.68); EOSINOPHILS PERCENT AUTO 1 % (0-6); Hematocrit 47.8 % (33.0-51.0); Hemoglobin 16.8 g/dL (11.5-16.0); IMMATURE GRAN ABSOLUTE AUTO 0.05 K/mm3 (0.00-0.10); IMMATURE GRAN PERCENT AUTO 0 % (0-1); LYMPHOCYTES ABSOLUTE AUTO 2.08 K/mm3 (0.84-5.20); LYMPHOCYTES PERCENT AUTO 19 % (21-46); MONOCYTES ABSOLUTE AUTO 0.82 K/mm3 (0.16-1.47); MONOCYTES PERCENT AUTO 7 % (4-13); Mean Corpuscular HGB Conc 35.1 g/dL (31.5-36.5); Mean Corpuscular Volume 80 fL (80-100); Mean Platelet Volume 10.9 fL (9.1-12.4); NEUTROPHILS ABSOLUTE AUTO 8.04 K/mm3 (1.96-9.15); NEUTROPHILS PERCENT AUTO 72 % (41-73); Platelet Count 288 K/mm3 (150-400); RDW Coefficient Variation 13.5 % (11.7-14.2); RDW Standard Deviation 37.7 fL (35.1-46.3); Red Blood Cell Count 5.99 M/mm3 (3.80-5.20); White Blood Cell Count 11.13 K/mm3 (4.00-11.30)
[2024-08-24 17:52] LABS: Albumin, Blood 4.5 g/dL (3.4-5.0); Albumin/Globulin Ratio 1.2 (0.8-1.8); Bilirubin, Total 2.1 mg/dL (0.1-1.0); Bun/Creatinine Ratio 13.7 (12.0-20.0); Calcium, Blood 9.9 mg/dL (8.5-10.1); Creatinine, Blood 0.73 mg/dL (0.40-1.00); Globulin, Blood 3.7 g/dL (2.2-4.0); Potassium, Blood 3.2 mmol/L (3.5-5.5); Total Protein, Blood 8.2 g/dL (6.4-8.2)
== END ==
LOC: LAB SHORT 17:37 → LAB 17:37
PROVIDERS: Physician Assistant Medical
DX: R11.2 Nausea with vomiting, unspecified (principal)
CPT/HCPCS: 80053; 82247; 82248; 85025

== ENCOUNTER → 2024-12-14 | Outpatient (CLI) | payer OTHER | LOC: LAB SHORT 11:58 → LAB 11:58 | DX: R11.15 Cyclical vomiting syndrome unrelated to migraine (principal) ==

== ENCOUNTER 2025-01-22 13:03 | Emergency (ER) | payer OTHER ==
[~2025-01-22] VITALS: Ht 165.1 cm; Wt 78.5 kg
[2025-01-22 13:46] LABS: BASOPHILS ABSOLUTE AUTO 0.09 K/mm3 (0.00-0.23); BASOPHILS PERCENT AUTO 1 % (0-2); EOSINOPHILS ABSOLUTE AUTO 0.02 K/mm3 (0.00-0.68); EOSINOPHILS PERCENT AUTO 0 % (0-6); Hematocrit 47.9 % (33.0-51.0); Hemoglobin 17.4 g/dL (11.5-16.0); IMMATURE GRAN ABSOLUTE AUTO 0.04 K/mm3 (0.00-0.10); IMMATURE GRAN PERCENT AUTO 0 % (0-1); LYMPHOCYTES ABSOLUTE AUTO 1.44 K/mm3 (0.84-5.20); LYMPHOCYTES PERCENT AUTO 14 % (21-46); MONOCYTES ABSOLUTE AUTO 0.51 K/mm3 (0.16-1.47); MONOCYTES PERCENT AUTO 5 % (4-13); Mean Corpuscular HGB 29.4 pg (26.0-34.0); Mean Corpuscular HGB Conc 36.3 g/dL (31.5-36.5); Mean Corpuscular Volume 81 fL (80-100); Mean Platelet Volume 10.5 fL (9.1-12.4); NEUTROPHILS ABSOLUTE AUTO 7.89 K/mm3 (1.96-9.15); NEUTROPHILS PERCENT AUTO 79 % (41-73); Platelet Count 465 K/mm3 (150-400); RDW Coefficient Variation 14.8 % (11.7-14.2); RDW Standard Deviation 43.3 fL (35.1-46.3); Red Blood Cell Count 5.92 M/mm3 (3.80-5.20); White Blood Cell Count 9.99 K/mm3 (4.00-11.30)
[2025-01-22 14:16] LABS: Albumin, Blood 4.6 g/dL (3.4-5.0); Albumin/Globulin Ratio 1.1 (0.8-1.8); Bilirubin, Total 2.7 mg/dL (0.1-1.0); Bun/Creatinine Ratio 25.3 (12.0-20.0); Calcium, Blood 10.2 mg/dL (8.5-10.1); Creatinine, Blood 0.55 mg/dL (0.40-1.00); Globulin, Blood 4.1 g/dL (2.2-4.0); Potassium, Blood 3.1 mmol/L (3.5-5.5); Total Protein, Blood 8.7 g/dL (6.4-8.2)
[2025-01-22] MEDS ORDERED: Ondansetron HCl 2 MG / ML 2ML Vial IV ONE (17:35)
[2025-01-22] MEDS ORDERED: Potassium Chloride 20 MEQ TabCR PO ONE (17:35)
[2025-01-22] MEDS ORDERED: Potassium Chloride 10 Meq Tablet SA PO ONE (17:35)
[2025-01-22] MEDS ORDERED: NS 1,000 ML IV SCH (17:40)
[2025-01-22] MEDS ORDERED: Promethazine HCl 25 MG Supp PR ONE (19:30)
[2025-01-22] MEDS ORDERED: Haloperidol Lactate Inj. 5 MG/ML Injection IV ONE (21:20)
[2025-01-22] MEDS ORDERED: Potassium Chloride 40 MEQ in NS 250 ML IV ONE (21:20)
[2025-01-22] MEDS ORDERED: DiphenhydrAMINE HCl 50 MG/ML 1ML Vial IV ONE (21:25)
[2025-01-23 00:30] LABS: Calcium, Ionized (POC) 1.12 mmol/L (1.10-1.46); Chloride (POC) 98 mmol/L (98-108); Creatinine (POC) 0.6 mg/dL (0.6-1.0); Glucose (ISTAT POC) 94 mg/dL (70-99); Hemoglobin (POC) 13.3 g/dL (12.0-16.0); Potassium (POC) 3.4 mmol/L (3.5-5.5); Sodium (POC) 138 mmol/L (135-148); Total CO2 (POC) 25 mmol/L (21-32)
[2025-01-23] MEDS ORDERED: Potassium Chloride 10 Meq Tablet SA PO ONE (00:40)
[2025-01-23 01:00] VITALS: BP 140/93
[2025-01-23] MEDS ORDERED: PROM12.5S PR (01:14)
== END 2025-01-23 01:27 | disposition home or self-care (01) ==
LOC: ER 13:03
PROVIDERS: Student in an Organized Health Care Education/Training Program
DX: R11.15 Cyclical vomiting syndrome unrelated to migraine (principal); Z79.899 Other long term (current) drug therapy
CPT/HCPCS: 80047; 80053; 82248; 83690; 84703; 85014; 85025; 86850; 86900; 86901; 96365; 96366; 96375; 99284-25; A9270; J1200; J1630; J2405; J3480; J7030; J7050